=== PATIENT | female | born 1960 | race Caucasian/White ===

== ENCOUNTER → 2016-10-19 | Outpatient (CLI) | payer BC ==
[~2016-10-19] MED LIST: COLACE100 MG PO; MOBIC7.5 MG PO; PERCOCET 5-3251 EACH PO; THERAGRAN-M1 TAB PO; ULTRAM50 MG PO; VALIUM2 MG PO
== END ==
LOC: GBCOE 12:27
DX: Z12.31 Encounter for screening mammogram for malignant neoplasm of breast (principal)
CPT/HCPCS: G0202